=== PATIENT | female | born 1975 | race Caucasian/White ===

== ENCOUNTER 2018-05-11 08:14 | Emergency (ER) | payer OTHER | END 2018-05-11 09:04 | disposition home or self-care (01) | LOC: MADERS 08:14 | DX: M25.511 Pain in right shoulder (principal); G43.909 Migraine, unspecified, not intractable, without status migrainosus; I10 Essential (primary) hypertension; E78.5 Hyperlipidemia, unspecified; F43.10 Post-traumatic stress disorder, unspecified; F17.210 Nicotine dependence, cigarettes, uncomplicated; Z79.899 Other long term (current) drug therapy; Z71.6 Tobacco abuse counseling | CPT/HCPCS: 99406 ==